=== PATIENT | female | born 1985 | race Caucasian/White ===

== ENCOUNTER 2020-12-19 09:00 | Inpatient (IN) | payer OTHER ==
[~2020-12-19] VITALS: Ht 157.5 cm; Wt 2.7 kg
[~2020-12-19 09:00] MED LIST: CITRANATAL B-C1 EAC1 PO; ZANTAC150 M3 PO
[2021-01-01] MEDS ORDERED: KETO10TA2 PO (07:42)
[2021-01-01] MEDS ORDERED: OXYC1TAB9 PO (07:42)
== END 2021-01-01 12:18 | disposition home or self-care (01) | DRG 785 ==
LOC: SURG-SUITE 12-29 10:36 → LDR 12-29 10:36 → SURG-SUITE 12-29 13:44 → SURH 01-07 09:00
PROVIDERS: Obstetrics & Gynecology Maternal & Fetal Medicine; ADMIT Obstetrics & Gynecology; ATTEND Obstetrics & Gynecology
PROC: 0UB70ZZ Excision of Bilateral Fallopian Tubes, Open Approach (ICD-10-PCS; 2020-12-29)
PROC: 4A1HXFZ Monitoring of Products of Conception, Cardiac Rhythm, External Approach (ICD-10-PCS; 2020-12-29)
PROC: 10D00Z1 Extraction of Products of Conception, Low, Open Approach (ICD-10-PCS; principal; 2020-12-29 12:00)
DX: O34.211 Maternal care for low transverse scar from previous cesarean delivery (principal); Z30.2 Encounter for sterilization; O75.82 Onset (spontaneous) of labor after 37 completed weeks of gestation but before 39 completed weeks gestation, with delivery by (planned) cesarean section; Z37.0 Single live birth; Z3A.38 38 weeks gestation of pregnancy; Z20.822 Contact with and (suspected) exposure to COVID-19

== ENCOUNTER 2021-02-10 11:09 | Outpatient (CLI) | payer OTHER ==
[~2021-02-10 11:09] MED LIST changes: +KETO10TA2 PO; +OXYC1TAB9 PO
== END 2021-02-10 12:09 | disposition home or self-care (01) ==
LOC: PPH VACUNA 11:09
PROVIDERS: ATTEND Emergency Medicine Pediatric Emergency Medicine
DX: Z23 Encounter for immunization (principal)